=== PATIENT | male | born 1970 | race Caucasian/White ===

== ENCOUNTER 2017-01-29 15:28 | Emergency (ER) | payer BC ==
[2017-01-29 15:43] VITALS: BMI 36.1
--- NOTE | 2017-01-29 15:58 | DR.EXTPAIN ---
HPI - Time seen Time seen: 15:50 - PCP Primary Care Physician: VIRGINIA ELLIS - Complaint/Symptoms Chief Complaint Doctor Comments: Patient states that he started having chest pain s/p having his gallbladder taken out. He gets stomach pain, right and left chest pain. Two months he was seen in [place] by Dr Pak and s/p evaluation was told he was ok. Today his abdomen looked blotched bluish and severe left upper quadrant pain. He has had this type of abdominal pain for a few times in the past. Chief Complaint:: .PT C/O UPPER , LEFT PAIN LEFT SIDE PAIN... COMES AND GOES ,. , SHARP PAIN AND HE HAS BEEN BELCHING. Self Treatment fo Chief Complaint: PT TOOK GAS MEDS .. - Source History Provided: Patient - Mode of arrival Mode of Arrival: Ambulatory - Timing Onset of Chief Complaint: 01/15/17 PMH - PMH Past Medical History: Yes Past Medical History: Hypertension Past Surgical History: Yes Surgical History: Angioplasty/Stents, CABG/Valve Surgery, Cholecystectomy - Family History History of Family Medical Conditions: No - Social History Does patient currently use any type of tobacco product: No Have you used tobacco products in the last 12 months: No Type of Tobacco Use: None Does any household member use tobacco: No Alcohol Use: Rarely Do you use any recreational Drugs:: No Lives With: Family Lives Where: Home - infectious screening In the last 2 months have you had wt loss of >10#?: NO Have you had fever, night sweats or hemotysis?: No Have you traveled outside the country in the last 6 months?: No Isolation: Standard ROS - Review of Systems Constitutional: No Symptoms Reported. negative: Diaphoresis Eyes: No Symptoms Reported ENTM: No Symptoms Reported Respiratoy: No Symptoms Reported Cardiovascular: No Symptoms Reported Gastrointestinal/Abdominal: See HPI, Abdominal Pain Genitourinary: No Symptoms Reported Neurological: No Symptoms Reported Musculoskeletal: No Symptoms Reported Integumentary: No Symptoms Reported Hematologic/Lymphatic: No Symptoms Reported Endocrine: No Symptoms Reported Psychiatric: No Symptoms Reported All Other Systems: Reviewed and Negative PE - Vital Signs Vitals: Temperature 98.0 F Pulse Rate [Left Brachial] 61 Pulse Rate 62 Respiratory Rate 16 Blood Pressure [Left Arm] 153/76 Blood Pressure 172/94 O2 Sat by Pulse Oximetry 95 - General Limitations: No Limitations General Appearance: Alert, Anxious - Head Head Exam: Normal Inspection, Atraumatic - Eyes Eye exam: Normal Appearance, PERRL, EOMI - ENT ENT Exam: Normal Exam - Neck Neck Exam: Normal Inspection, Full ROM - Chest Chest Inspection: Normal Inspection - Respiratory Respiratory Exam: Normal Lung Sounds Bilat Respiratory Exam: Bilateral Clear to Auscultation - Cardiovascular Cardiovascular Exam: Regular Rate, Normal Rhythm - Abdominal Exam Abdominal Exam: Normal Inspection, Distention Abdominal Tenderness: LUQ, Epigastrium, Moderate - Extremities Extremities Exam: Normal Inspection, Full ROM - Upper Extremities Shoulder Exam: Normal Inspection Arm Exam: Normal Inspection Elbow Exam: Normal Inspection Forearm Exam: Normal Inspection Hand Exam: Normal Inspection Neuromotor Exam: Normal Exam Neurosensory Exam: Normal Exam Upper Ext. Vascular Exam: Capillary Refill - Lower Extremities Hip/Pelvis Exam: Normal Inspection Upper Leg Exam: Normal Inspection Knee Exam: Normal Inspection Lower Leg Exam: Normal Inspection - Back Back Exam: Normal Inspection, Full ROM - Neurological Neurological Exam: Alert, Oriented X3, CN II-XII Intact - Psychiatric Psychiatric Exam: Normal Affect ROR - Labs Reviewed Laboratory Results Reviewed?: Yes (H pyloric positive) Result Diagrams: 01/29/17 16:10 01/29/17 16:10 Laboratory: WBC 9.1 X10^3/uL (3.6-10.0) 01/29/17 16:10 RBC 5.04 X10^6/uL (4.7-6.0) 01/29/17 16:10 Hgb 15.1 g/dL (13.5-18.0) 01/29/17 16:10 Hct 43.7 % (42.0-54.0) 01/29/17 16:10 MCV 86.7 fL (80.0-100.0) 01/29/17 16:10 MCH 30.0 pg (27.0-34.0) 01/29/17 16:10 MCHC 34.6 g/dL (33.0-35.0) 01/29/17 16:10 RDW 13.5 % (11.6-16.5) 01/29/17 16:10 Plt Count 162 X10^3/uL (150.0-450.0) 01/29/17 16:10 MPV 9.9 fL (7.4-11.0) 01/29/17 16:10 Neut % 38.3 % (42.0-75.0) L 01/29/17 16:10 Lymph % 48.8 % (21.0-51.0) 01/29/17 16:10 [place] % 8.2 % (0.0-13.0) 01/29/17 16:10 Eos % 3.1 % (0.9-2.9) H 01/29/17 16:10 Baso % 1.6 % (0.2-1.0) H 01/29/17 16:10 Neut # 3.5 x10^3/uL (2.2-4.8) 01/29/17 16:10 Lymph # 4.5 X10^3/uL (1.3-2.9) H 01/29/17 16:10 [place] # 0.8 x10^3/uL (0.3-0.8) 01/29/17 16:10 Eos # 0.3 x10^3/uL (0.0-0.2) H 01/29/17 16:10 Baso # 0.1 X10^3/uL (0.0-0.1) 01/29/17 16:10 Absolute Nucleated RBC 0.1 /100WBC 01/29/17 16:10 INR Target Range - 01/29/17 16:10 INR 1.00 (0.8-1.3) 01/29/17 16:10 PTT 31.7 SECONDS (22.9-36.5) 01/29/17 16:10 PTT Comment - 01/29/17 16:10 Sodium 140 mmol/L (136-145) 01/29/17 16:10 Corrected Sodium 140 mmol/L (136-145) 01/29/17 16:10 Potassium 3.8 mmol/L (3.5-5.1) 01/29/17 16:10 Chloride 104 mmol/L (98-107) 01/29/17 16:10 Carbon Dioxide 28.1 mmol/L (21-32) 01/29/17 16:10 BUN 13 mg/dL (7-18) 01/29/17 16:10 Creatinine 0.83 mg/dL (0.70-1.30) 01/29/17 16:10 Est GFR (MDRD) Af Amer > 60 (>60) 01/29/17 16:10 Est GFR (MDRD) Non-Af > 60 (>60) 01/29/17 16:10 Glucose 115 mg/dL (65-99) H 01/29/17 16:10 Calcium 8.5 mg/dL (8.5-10.1) 01/29/17 16:10 Corrected Calcium TNP 01/29/17 16:10 Phosphorus 3.0 mg/dL (2.6-4.7) 01/29/17 16:10 Total Bilirubin 0.40 mg/dL (0.2-1.0) 01/29/17 16:10 AST 53 Units/L (15-37) H 01/29/17 16:10 ALT 75 Units/L (12-78) 01/29/17 16:10 Alkaline Phosphatase 66 Units/L (46-116) 01/29/17 16:10 Creatine Kinase 203 Units/L (39-308) 01/29/17 16:10 CK-MB (CK-2) 3.3 ng/mL (0-4.0) 01/29/17 16:10 CK/CKMB % Calc 1.6 % (<4) 01/29/17 16:10 Troponin I < 0.02 ng/mL (0-1.5) 01/29/17 16:10 Total Protein 7.5 g/dL (6.4-8.2) 01/29/17 16:10 Albumin 3.6 g/dL (3.4-5.0) 01/29/17 16:10 Globulin 3.9 g/dL (2.5-4.5) 01/29/17 16:10 Albumin/Globulin Ratio 0.9 Ratio (1.1-2.1) L 01/29/17 16:10 H. pylori IgG Antibody Positive (NEGATIVE) A 01/29/17 16:10 - XRAY XRAY Interpreted by: Radiologist (CT:ABD/Pel: Spine degenerative change noted minimally. Sternotomy change noted. Limited images through lower chest show lung base scarring. There is cardiomegaly and coronary artery/CAGG change. Addomen: The gallbladder is absent. The liever shows no large lesion. The liver is borderline cirrhotic in configuration. The spleen, pancreas and adrenal glands are normal. Shotty eb haeptis node noted. The stomach and small bowel are normal no acute colonic abnormality seen. The appendix is normal. Vascular palque is seen. There is left interpolar renal stone on axial image 44 measuring 2mm. The right kidney is normal. Imprssion: Nonobstructin left renal stone., Cardiomegaly and atherosclerotic plaque. Borderline cirrhotic liver. Correlate with hepatic biochemical profile.) - Diagnosis Discharge Problem: Nephrolithiasis, Cardiomegaly, H. pylori infection - Discharge Plan Condition: Stable - Follow ups/Referrals Follow ups/Referrals: BRITNEY COLEMAN [Primary Care Provider] - 3 days - Instructions
[2017-01-29] MEDS ORDERED: MORPHINE SULFATE INJ 4 MG IVP ONE (16:01)
[2017-01-29] MEDS ORDERED: NS 1000 ML 1,000 ML ONE (16:05)
[2017-01-29] MEDS ORDERED: MORPHINE SULFATE INJ 4 MG ONE (16:06)
[2017-01-29 16:19] LABS: BASOPHILS # (AUTO) 0.1 X10^3/uL (0.0-0.1); BASOPHILS % (AUTO) 1.6 % (0.2-1.0); EOSINOPHILS # (AUTO) 0.3 x10^3/uL (0.0-0.2); EOSINOPHILS % (AUTO) 3.1 % (0.9-2.9); HEMATOCRIT 43.7 % (42.0-54.0); HEMOGLOBIN 15.1 g/dL (13.5-18.0); LYMPHOCYTES # (AUTO) 4.5 X10^3/uL (1.3-2.9); LYMPHOCYTES % (AUTO) 48.8 % (21.0-51.0); MEAN CORPUSCULAR HGB CONC 34.6 g/dL (33.0-35.0); MEAN CORPUSCULAR VOLUME 86.7 fL (80.0-100.0); MEAN PLATELET VOLUME 9.9 fL (7.4-11.0); MONOCYTES # (AUTO) 0.8 x10^3/uL (0.3-0.8); MONOCYTES % (AUTO) 8.2 % (0.0-13.0); NEUTROPHILS # (AUTO) 3.5 x10^3/uL (2.2-4.8); NEUTROPHILS % (AUTO) 38.3 % (42.0-75.0); PLATELET COUNT 162 X10^3/uL (150.0-450.0); RED BLOOD COUNT 5.04 X10^6/uL (4.7-6.0); RED CELL DISTRIBUTION WIDTH 13.5 % (11.6-16.5); WHITE BLOOD COUNT 9.1 X10^3/uL (3.6-10.0)
[2017-01-29 16:38] LABS: BLOOD UREA NITROGEN 13 mg/dL (7-18); CALCIUM 8.5 mg/dL (8.5-10.1); CARBON DIOXIDE 28.1 mmol/L (21-32); CHLORIDE 104 mmol/L (98-107); COR NA(FOR HYPERGLY) 140 mmol/L (136-145); CREATININE 0.83 mg/dL (0.70-1.30); GLUCOSE 115 mg/dL (65-99); SODIUM 140 mmol/L (136-145); TROPONIN I < 0.02 ng/mL (0-1.5); eGFR BLACK RACES > 60 (>60); eGFR NON BLACK RACES > 60 (>60)
[2017-01-29 16:42] LABS: ALANINE AMINOTRANSFERASE 75 Units/L (12-78); ALBUMIN 3.6 g/dL (3.4-5.0); ALKALINE PHOSPHATASE 66 Units/L (46-116); ASPARTATE AMINO TRANSFERASE 53 Units/L (15-37); CKMB % 1.6 % (<4); CREATINE KINASE 203 Units/L (39-308); CREATINE KINASE MB 3.3 ng/mL (0-4.0); TOTAL PROTEIN 7.5 g/dL (6.4-8.2)
[2017-01-29] MEDS ORDERED: CATAPRES TAB 0.2 MG ONE (16:42)
[2017-01-29] MEDS ORDERED: CATAPRES TAB 0.2 MG PO ONE (16:42)
[2017-01-29] MEDS ORDERED: NS 1000 ML 1,000 ML IV SCH (17:00)
[2017-01-29] MEDS ORDERED: NS 100 ML IV 100 ML IV ONE (17:08)
--- NOTE | 2017-01-29 17:21 | RAD ---
HISTORY: Left-sided chest pain Study: Portable chest Comparison: November 02, 2016 Findings: The trachea is midline. The cardiac silhouette is normal status post old sternotomy.. The lungs ar e clear without focal infiltrate or effusion. The bony thorax is unremarkable. IMPRESSION: 1. No acute cardiopulmonary disease. Reported By:
[2017-01-29 17:45] VITALS: BP 153/76
--- NOTE | 2017-01-29 17:55 | CT ---
CT abdomen and pelvis with contrast Indication of left chest and flank pain. Technique: Helical images through the abdomen and pelvis after IV contrast. Coronal and sagittal ref ormats provided. Findings: Spine degenerative change noted minimally. Sternotomy change noted. Limited images through lower chest show lung base scarring. There is cardiomegaly and Coronary artery/CABG change. Abdomen: The gallbladder is absent. The liver shows no large lesion. The liver is borderline cirrhot ic in configuration. The spleen, pancreas and adrenal glands are normal. Shotty eb hepatis nodes noted. The stomach and small bowel are normal no acute colonic abnormality seen. The appendix is nor mal. Vascular plaque is seen. There is left interpolar renal stone on axial image 44 measuring 2 mm. The right kidney is normal. Pelvis: Urinary bladder and rectum are normal. Prostate gland is normal. Impression: 1. Nonobstructing left renal stone. 2. Cardiomegaly and atherosclerotic plaque. 3. Borderline cirrhotic liver. Correlate with hepatic biochemical profile. Reported By:
== END 2017-01-29 18:41 | disposition home or self-care (01) ==
LOC: ER 15:54
DX: N20.0 Calculus of kidney (principal); I51.7 Cardiomegaly; B96.81 Helicobacter pylori [H. pylori] as the cause of diseases classified elsewhere
CPT/HCPCS: 36415; 71010; 74177; 80053; 82550; 82553; 84100; 84484; 85025; 85610; 85730; 86677; 93005; 93010; 96365; 96374; 99283; A4222; J2270